=== PATIENT | male | born 1965 | race Hispanic/Latino ===

== ENCOUNTER → 2017-10-21 | Outpatient (CLI) | payer OTHER | LOC: RAD 14:54 | PROVIDERS: ATTEND Surgery | DX: I83.93 Asymptomatic varicose veins of bilateral lower extremities (principal) | CPT/HCPCS: 93970 ==

== ENCOUNTER 2017-12-09 06:34 | Observation (INO) | payer OTHER ==
[2017-12-06 15:16] LABS: BASOPHILS # (AUTO) 0.1 (0.0-0.1); BASOPHILS % 0.5 % (0.0-1.0); EOSINOPHILS # (AUTO) 0.2 (0.0-0.4); EOSINOPHILS % 1.7 % (0.0-6.0); HEMATOCRIT 48.5 % (38.2-49.6); HEMOGLOBIN 16.2 g/dL (14.0-18.0); LYMPHOCYTES # (AUTO) 3.9 (1.0-3.2); LYMPHOCYTES % 37.4 % (18.0-39.1); MEAN CORPUSCULAR HEMOGLOBIN 27.6 pg (28-32); MEAN CORPUSCULAR HGB CONC 33.4 g/dL (31-35); MEAN CORPUSCULAR VOLUME 82.5 fL (81-99); MONOCYTES # (AUTO) 0.9 (0.2-0.8); MONOCYTES % 8.6 % (4.4-11.3); NEUTROPHILS # (AUTO) 5.4 (2.1-6.9); NEUTROPHILS % 51.5 % (38.7-80.0); PLATELET COUNT 249 x10e3/uL (140-360); RED BLOOD COUNT 5.88 x10e6/uL (4.3-5.7); RED CELL DISTRIBUTION WIDTH 13.2 % (11.7-14.4)
[2017-12-06 15:34] LABS: ANION GAP 14.5 mmol/L (8-16); BLOOD UREA NITROGEN 21 mg/dL (7-26); BUN/CREATININE RATIO 25 (6-25); CALCIUM 9.4 mg/dL (8.4-10.2); CARBON DIOXIDE 29 mmol/L (22-29); CHLORIDE 101 mmol/L (98-107); CREATININE, SERUM 0.85 mg/dL (0.72-1.25); EST GLOMERULAR FILTRATION RATE > 60 ML/MIN (60-); GLUCOSE 109 mg/dL (74-118); POTASSIUM 3.5 mmol/L (3.5-5.1); SODIUM 141 mmol/L (136-145)
[~2017-12-09] VITALS: Ht 165.1 cm; Wt 96.3 kg
[~2017-12-09 06:34] MED LIST: ASPIR 8181 MG PO; ATORVASTATIN CA10 MG PO; LISINOPRIL-HCT1 EAC1 PO; VITAMIN B COMP1 EACH PO
[2017-12-09] MEDS ORDERED: LIDOCAINE HCL 2% LOCAL INJ 5 ML SDV VIAL INJ ONE (11:32)
[2017-12-09] MEDS ORDERED: SEVOFLURANE INHAL SOLN 250 ML PEN BTL ONE (11:32)
[2017-12-09] MEDS ORDERED: ONDANSETRON HCL INJ 2 MG/ML VIAL ONE (11:32)
[2017-12-09] MEDS ORDERED: CEFAZOLIN SOD 1 GM VIAL ONE (11:32)
[2017-12-09] MEDS ORDERED: PROPOFOL IV EMULSION 10 MG/ML 20 ML VIAL ONE (11:32)
[2017-12-09] MEDS ORDERED: DEXAMETHASONE SOD PHOS INJ 4 MG/ML VIAL ONE (11:32)
[2017-12-09] MEDS ORDERED: ACETAMINOPHEN 1000 MG/100 ML IV ONE (11:32)
[2017-12-09] MEDS ORDERED: FENTANYL CITRATE/PF 100MCG/2 ML INJ ONE ×2 (12:46→15:02)
[2017-12-09] MEDS ORDERED: HYDROCODONE/APAP 7.5MG-325MG 1 EA TAB PO PRN (13:00)
[2017-12-09] MEDS ORDERED: HYDROMORPHONE 1MG/1ML INJ IV PRN (13:00)
[2017-12-09 13:50] VITALS: BP 124/71
[2017-12-09] MEDS ORDERED: CEFAZOLIN SOD 1 GM/NS 50ML 50 ML IV SCH (14:00)
--- NOTE | 2017-12-09 14:06 | Operative Report ---
DATE OF PROCEDURE: December 09, 2017 PREOPERATIVE DIAGNOSIS: Severe left leg saphenous vein varicosities. POSTOPERATIVE DIAGNOSIS: Severe left leg saphenous vein varicosities. OPERATION PERFORMED: Left leg greater saphenous vein stripping with multiple ligations, numbering 30. COLOR PASTE MIXING SUPERVISOR: Dr. Esau Eckert ANESTHESIA: General. COMPLICATIONS: None. ESTIMATED BLOOD LOSS: 200 mL. DESCRIPTION OF PROCEDURE: With the patient lying in bed in the supine position, under good general anesthesia, the left leg and groin were prepped with Betadine solution and draped in the usual manner. The patient had a marking of the left leg from all of the very large varicosities that he had preoperatively. We then went ahead and made an incision at the level of the ankle, and the saphenous vein was identified. The tributaries were ligated at this point, and the saphenous vein was isolated. An incision was then made in the left groin, and the saphenous vein was identified. There were numerous large collaterals coming in, all of which were ligated all the way down to the junction with the femoral vein. All of the tributaries were ligated with 2-0 silk ties. After this was done, the stripper was then run from the ankle all the way up to the groin. The saphenous vein was then tied at the groin without any difficulty with 2-0 silk, and the stripper was then brought out at the level of the groin. The saphenous vein was then slowly and carefully stripped all the way up the leg without any difficulty. As the vein was stripped, all of the previously marked varicose locations were individually ligated. They were all done in similar fashion by making an incision. The vein was identified proximally and distally with all of its tributaries, which were then either stripped or ligated with 3-0 Vicryl. Roughly about 30 incisions were made up and down the leg, particularly anteriorly. At the level of the mid lower leg, the skin was significantly abnormal from the chronic varicosities, with some very, very large veins stuck underneath the skin. Several tributaries were identified, and perforators were identified and ligated. The saphenous vein was totally stripped of the left leg. Once this was done, hemostasis was ascertained. The wounds were then closed in layers. At the groin level, the subcutaneous tissue was approximated with 3-0 Vicryl, and the skin was closed with interrupted vertical mattress sutures of 3-0 silk. All of the other wounds were closed with interrupted vertical mattress sutures of 3-0 silk. A pressure dressing was applied. The sponge, lap and needle count was correct. The patient tolerated the procedure well and returned to the recovery room in stable condition. Job#: [id number]
[2017-12-09] MEDS ORDERED: MIDAZOLAM HCL 2 MG/2 ML VIAL ONE (15:02)
[2017-12-09] MEDS: CEFAZOLIN SOD 1 GM VIAL IV SCH (16:04)
[2017-12-09 16:20] VITALS: BP 111/71
[2017-12-09 18:55] VITALS: BP 129/80
[2017-12-09 20:00] VITALS: BP 129/80
[2017-12-10] VITALS: BP 117/70
[2017-12-10] MEDS ORDERED: CEFAZOLIN SOD 1 GM/NS 50ML 50 ML IV ONE (03:09)
[2017-12-10] MEDS ORDERED: CEFAZOLIN SOD 1 GM VIAL ONE (03:36)
[2017-12-10] MEDS: CEFAZOLIN SOD 1 GM VIAL IV SCH (03:41)
[2017-12-10 04:00] VITALS: BP 110/66
[2017-12-10] MEDS: DEXTROSE 5%/LACTATED RINGERS 1,000 ML IV SCH ×3 (06:16→08:25)
[2017-12-10 07:39] VITALS: BP 113/62
[2017-12-10 11:18] VITALS: BP 113/62
[2017-12-10 11:28] VITALS: BP 127/77
[2017-12-10] MEDS: PANTOPRAZOLE 40 MG 10ML VIAL IV SCH ×2 (12:33→13:00)
[2017-12-10] MEDS ORDERED: TYLENOL WITH C1 EACH PO (14:48)
[2017-12-10] MEDS ORDERED: KEFLEX500 MG PO (14:49)
== END 2017-12-10 15:18 | disposition home or self-care (01) ==
LOC: OR 06:34 → IMCU 13:51
PROVIDERS: ADMIT Surgery; ATTEND Surgery
DX: I83.92 Asymptomatic varicose veins of left lower extremity (principal); I10 Essential (primary) hypertension; K44.9 Diaphragmatic hernia without obstruction or gangrene
CPT/HCPCS: 36415; 37700; 37722; 80048; 85025; 88305; 93005; G0378 ×2; J0690 ×2; J1100; J2001; J2250; J2405; J7120